=== PATIENT | male | born 1975 | race Caucasian/White ===

== ENCOUNTER 2023-03-17 10:50 | Outpatient (REF) | payer OTHER, SELFPAY ==
--- NOTE | ~2023-03-17 | XR_ITS ---
EXAMINATION: XR LUMBOSACRAL SPINE CLINICAL INFORMATION: Low back pain. COMPARISON: None available. TECHNIQUE: 3 views of the lumbosacral spine. FINDINGS: Mild rightward curvature of the lumbar spine. Facet arthritis in lower lumbar spine. Degenerative changes in the imaged lower thoracic spine. Multilevel lumbar spondylosis with moderate loss of disc space height at L4-L5. Moderate degenerative changes in the bilateral sacroiliac joints. XR/XR lumbar spine 2-3V IMPRESSION: 1. Moderate degenerative disc disease at L4-L5. 2. Facet arthritis in the lower lumbar spine.
== END 2023-03-17 10:51 | disposition home or self-care (01) ==
LOC: HO.LAB 10:50
PROVIDERS: PCP Internal Medicine; Visit Provider Internal Medicine
DX: E78.5 Hyperlipidemia, unspecified (principal); R63.5 Abnormal weight gain
CPT/HCPCS: 36415; 72100; 80053; 80061; 84439; 84443; 85025